=== PATIENT | male | born 1955 | race Two or more races ===

== ENCOUNTER 2020-07-07 14:19 | Outpatient (CLI) | payer MEDICARE | END 2020-07-07 23:59 | disposition home or self-care (01) | LOC: MSC 14:19 | PROVIDERS: ATTEND Internal Medicine | DX: M25.512 Pain in left shoulder (principal); R73.9 Hyperglycemia, unspecified; I10 Essential (primary) hypertension; Z79.52 Long term (current) use of systemic steroids ==